=== PATIENT | male | born 1950 | race Caucasian/White ===

== ENCOUNTER 2017-01-04 19:53 | Emergency (ER) | payer MEDICARE, OTHER | END 2017-01-04 22:20 | disposition home or self-care (01) | LOC: ER1 19:53 | DX: S39.012A Strain of muscle, fascia and tendon of lower back, initial encounter (principal); S29.012A Strain of muscle and tendon of back wall of thorax, initial encounter; S70.02XA Contusion of left hip, initial encounter; M81.0 Age-related osteoporosis without current pathological fracture; Z87.891 Personal history of nicotine dependence; Z79.82 Long term (current) use of aspirin; Z79.899 Other long term (current) drug therapy; W11.XXXA Fall on and from ladder, initial encounter | CPT/HCPCS: 71010; 72128; 72131; 72170; 96372; 99284; J1885; J2270 ==